=== PATIENT | female | born 1985 | race Caucasian/White ===

== ENCOUNTER 2020-10-19 09:02 | Outpatient (REF) | payer OTHER, SELFPAY ==
[2020-10-20 12:32] LABS: BV Int Neg Control Negative (Negative); BV Int Pos Control Positive (Positive)
[2020-10-23 20:57] LABS: HPV mRNA E6/E7 rflx Not Detected (Not Detected)
== END 2020-10-19 09:03 | disposition home or self-care (01) ==
LOC: HO.LAB 09:02
PROVIDERS: PCP Internal Medicine; Visit Provider Obstetrics & Gynecology
DX: Z01.419 Encounter for gynecological examination (general) (routine) without abnormal findings (principal); N94.10 Unspecified dyspareunia; Z11.3 Encounter for screening for infections with a predominantly sexual mode of transmission
CPT/HCPCS: 87480; 87510; 87624; 87660; 88142

== ENCOUNTER 2021-10-22 10:32 | Outpatient (REF) | payer OTHER, SELFPAY ==
[2021-10-22 15:54] LABS: CT PCR NOT DETECTED (Not Detect.); NG PCR NOT DETECTED (Not Detect.)
[2021-10-23 12:16] LABS: BV Int Neg Control Negative (Negative); BV Int Pos Control Positive (Positive)
[2021-10-25 05:06] LABS: HPV mRNA E6/E7 rflx Not Detected (Not Detected)
== END 2021-10-22 10:33 | disposition home or self-care (01) ==
LOC: HO.LAB 10:32
PROVIDERS: Visit Provider Advanced Practice Midwife
DX: Z01.411 Encounter for gynecological examination (general) (routine) with abnormal findings (principal); Z11.51 Encounter for screening for human papillomavirus (HPV); R10.2 Pelvic and perineal pain; Z20.2 Contact with and (suspected) exposure to infections with a predominantly sexual mode of transmission
CPT/HCPCS: 81003; 87480; 87491; 87510; 87591; 87624; 87660; 88142

== ENCOUNTER 2021-11-05 08:53 | Outpatient (REF) | payer OTHER, SELFPAY ==
--- NOTE | ~2021-11-05 | US_ITS ---
. EXAMINATION:US pelvic and transvaginal CLINICAL INFORMATION: Reason for Exam R10.2 - Pelvic and perineal pain COMPARISON: No priors available. LMP: 10/26/2021 FINDINGS: UTERUS: The uterus is anteverted. Size: 10 x 5.2 x 6.2 cm. Uterine mass: There is no uterine mass. Cervix: Grossly unremarkable. Endometrium: No ultrasound evidence of endometrial lesion. endometrial thickness measures 0.9 cm there is a trace amount of fluid in the endometrial canal. Questionable significance. ADNEXA: Normal Right ovary: Normal in size. There are ovarian follicles. Left ovary: Normal in size. Doppler exam: Normal Doppler flow identified in both ovaries. FREE FLUID: Trace amount of free fluid. OTHER FINDINGS: None US/US pelvic and transvaginal IMPRESSION: Trace amount of free fluid in the endometrial canal probably of no clinical significance, ultrasound otherwise is normal. No ultrasound evidence of uterine mass or fibroid.
== END 2021-11-05 08:54 | disposition home or self-care (01) ==
LOC: HO.HMGCX 08:53
PROVIDERS: Visit Provider Advanced Practice Midwife
DX: R10.2 Pelvic and perineal pain (principal)
CPT/HCPCS: 76830; 76856

== ENCOUNTER 2022-01-06 12:15 | Outpatient (REF) | payer OTHER, SELFPAY ==
[2022-01-06 13:44] LABS: MANUAL DIFF FLAG NO
[2022-01-06 13:59] LABS: Basophils Percent Auto 0.7 % (0-2); Eosinophils Percent Auto 0.2 % (0-4); Hematocrit 39.5 % (37.0-47.0); Hemoglobin 13.2 g/dl (12.0-16.0); Imm Gran Abs Auto 0.06 X10*3/uL (0.00-0.03); Lymphocytes Absolute Auto 1.3 X10*3/uL (1.2-4.9); Mean Corpuscular HGB Conc 33.4 g/dl (31.0-35.0); Mean Corpuscular Hemoglobin 28.4 pg (27.0-33.0); Mean Corpuscular Volume 85.1 fL (80.0-98.0); Mean Platelet Volume 10.5 fL (9.4-12.3); Monocytes Absolute Auto 0.5 X10*3/uL (0.1-1.2); Monocytes Percent Auto 9.4 % (2-11); Neutrophils Absolute Auto 3.8 x10*3/uL (2.0-8.3); Neutrophils Percent Auto 66.7 % (45-73); Platelet Count 304 X10*3/uL (160-400); Red Blood Count 4.64 X10*6/uL (4.20-5.50); Red Cell Distribution Width 13.4 % (11.0-16.0); White Blood Count 5.7 X10*3/uL (4.8-10.8)
[2022-01-06 14:17] LABS: Alanine Aminotransferase 16 U/L (0-31); Albumin Level 4.5 g/dL (3.5-5.0); Alkaline Phosphatase 68 U/L (39-117); Anion Gap 12 (12-20); Aspartate Amino Transferase 16 U/L (5-31); Bilirubin Total 0.3 mg/dL (0.0-1.0); Blood Urea Nitrogen 11 mg/dL (9-16); Calcium 10.6 mg/dL (8.4-10.2); Carbon Dioxide 27 mmol/L (22-29); Chloride 102 mmol/L (96-108); Cholesterol 173 mg/dL; Estimated Glomerular Filt Rate > 60; Glucose Fasting 78 mg/dL (60-99); HDL Cholesterol 48 mg/dL; LDL Cholesterol Calculated 99 mg/dl; Potassium 4.1 mmol/L (3.3-5.1); Sodium 137 mmol/L (135-145); Total Protein 7.7 g/dL (6.5-8.0); Triglycerides 134 mg/dL
[2022-01-06 14:25] LABS: TSH reflex Free T4 1.29 uIU/mL (0.32-4.0)
== END 2022-01-06 12:16 | disposition home or self-care (01) ==
LOC: HO.HMGCLDS 12:15
PROVIDERS: Visit Provider Internal Medicine
DX: Z00.00 Encounter for general adult medical examination without abnormal findings (principal); F32.9 Major depressive disorder, single episode, unspecified; G43.909 Migraine, unspecified, not intractable, without status migrainosus
CPT/HCPCS: 36415; 80053; 80061; 84443; 85025

== ENCOUNTER → 2022-03-05 10:52 | Outpatient (BNVA) | payer OTHER, SELFPAY | PROVIDERS: PCP Internal Medicine; Visit Provider Dietitian, Registered | DX: E66.3 Overweight (principal); Z68.28 Body mass index [BMI] 28.0-28.9, adult; Z71.3 Dietary counseling and surveillance | CPT/HCPCS: 97802 ==

== ENCOUNTER 2022-07-21 13:22 | Outpatient (REF) | payer OTHER, SELFPAY ==
--- NOTE | ~2022-07-21 | MM_ITS ---
EXAMINATION: MM DIAGNOSTIC DIGITAL BREAST TOMOSYNTHESIS, BILATERAL US DIAGNOSTIC ULTRASOUND BREAST, RIGHT CLINICAL INFORMATION: Intermittent recurrent right upper breast pain. No discharge. Age 37. No prior breast imaging. No known family history breast cancer. The lifetime risk of breast cancer based on the Tyrer-Cuzick Model is 9%. COMPARISON: None (current study represents initial baseline exam). TECHNIQUE: Digital breast tomosynthesis is performed in both the craniocaudal and mediolateral oblique views along with computer-aided detection (CAD). Synthesized 2D images are generated from the tomosynthesis. Ultrasound right breast is targeted to the areas of clinical concern. Grayscale imaging and color Doppler are performed without and with harmonics. FINDINGS: There are scattered areas of fibroglandular density (ACR BI-RADS breast composition Category b). There are no significant masses, abnormal calcifications, or other abnormalities. There is no architectural abnormality. No skin thickening or coarsening of the Augusto's ligaments. The axilla are unremarkable. The skin contours are smooth. Small incidental dermal lesion overlying the posterior lower outer right breast. There are bilateral nipple piercings. Ultrasound demonstrates no cystic or solid mass or architectural abnormality or focal duct ectasia. No skin thickening or edema tracking in soft tissue planes. No abnormal color flow. Results are discussed with the patient at time of visit. MM/MM tomosynthesis diagnostic BI IMPRESSION: 1. No mammographic evidence of malignancy or inflammatory changes. 2. Unremarkable targeted right breast ultrasound. ASSESSMENT: BI-RADS 2: Benign RECOMMENDATION: 1. Patient should be managed based on the clinical impression. 2. Otherwise, routine annual screening mammography, beginning age 40, or earlier as clinical risk factors warrant. This patient's information was entered into a reminder system with a target due date for their next mammogram.
== END 2022-07-21 13:23 | disposition home or self-care (01) ==
LOC: HO.MAMMO 13:22
PROVIDERS: Visit Provider Physician Assistant
DX: N64.4 Mastodynia (principal)
CPT/HCPCS: 76642; 77062; 77066

== ENCOUNTER → 2022-08-13 09:38 | Outpatient (BNVA) | payer OTHER, SELFPAY | PROVIDERS: PCP Internal Medicine; Visit Provider Dietitian, Registered | DX: E66.9 Obesity, unspecified (principal); Z68.31 Body mass index [BMI] 31.0-31.9, adult | CPT/HCPCS: 97803 ==

== ENCOUNTER → 2022-10-22 10:26 | Outpatient (BNVA) | payer OTHER, SELFPAY | PROVIDERS: PCP Internal Medicine; Visit Provider Dietitian, Registered | DX: E66.9 Obesity, unspecified (principal); Z68.32 Body mass index [BMI] 32.0-32.9, adult; Z71.3 Dietary counseling and surveillance | CPT/HCPCS: 97803 ==

== ENCOUNTER 2023-02-03 10:48 | Outpatient (AMB) | payer OTHER, SELFPAY ==
[2023-02-03 10:57] VITALS: BMI 31.4
--- NOTE | 2023-02-03 10:57 | A.OFFVIS_ITS ---
Intake VS Expanded 02/03/23 10:57 Height 5 ft 1 in Weight 166 lb 3.657 oz BMI 31.4 Intake Visit Reasons: obesity Allergies codeine Allergy (Unknown, Verified 07/08/22 14:12) nausea and vomiting HPI Nutrition Presentation Details Pt presents for MNT f/u for obesity Pt reports starting to track calories and protein , reaching 60-90 g protein per day and working on reducing carbs/higher fat foods. Meals consists of: B: protein shake (30 g protein shakes already made) L: grilled thigh with green beans and olive oil D: chicken legs in air fryer and salad food frequency vegetables: >3 serving/d fruits: 0-1/d protein : 60-90 g /d starches 10-12 dairy: 2-3 serving/d fluids 40 oz /d (water, low sugar beverages) Reports having bowel movements: every 2-3 days Most Recent Diabetes Results: Cholesterol 173 mg/dL 01/06/22 HDL Cholesterol 48 mg/dL 01/06/22 Triglycerides 134 mg/dL 01/06/22 Creatinine 0.83 mg/dL (0.5-1.4) 01/06/22 Blood Urea Nitrogen 11 mg/dL (9-16) 01/06/22 Sodium 137 mmol/L (135-145) 01/06/22 Potassium 4.1 mmol/L (3.3-5.1) 01/06/22 Chloride 102 mmol/L (96-108) 01/06/22 Carbon Dioxide 27 mmol/L (22-29) 01/06/22 Calcium 10.6 mg/dL (8.4-10.2) H 01/06/22 AST 16 U/L (5-31) 01/06/22 ALT 16 U/L (0-31) 01/06/22 Total Protein 7.7 g/dL (6.5-8.0) 01/06/22 Albumin 4.5 g/dL (3.5-5.0) 01/06/22 [facility] Medical History Abnormal Pap smear of vagina Annual physical exam Migraine Surgical History History of section History of tubal ligation Family History Father Unknown family medical history Mother Depression Anxiety HTN (hypertension) History of CVA (cerebrovascular accident) Diabetes mellitus Stroke Brother Leukemia Sister Migraine Brother No problems noted. Son No problems noted. Daughter No problems noted. Daughter No problems noted. 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 Used wt : 70 kg stated wt on 03/05/22 via TV , (75 kg on 08/13/22) (75 on 01/2023) Est kcal as per MSJ: 1538 (40% carb, 30% fat/prot) Est fluid needs: 1750 ml/d (25 ml/kg bw) Rec fiber: increase to 8-10 g per day and gradually increase to 25 g/d or as tolerated Rec Na: < 1500 2000 mg /d Educate patient on: (R= Reviewed, V = verbalizes understanding N/R= Needs review N/A= not applicable) * Food sources of carbohydrates and serving adequate serving sizes : R * Difference between complex carbohydrates and simple carbohydrates, role of fiber: R * Differences between fats (MUFA/PUFA/saturated fats, trans fats) and food sources of various fats: R- general info * Food sources of sodium and salt and healthy modifications for heart health and kidney health: R, general info * Vitamins and minerals: N/R * How to interpret food labels: R- (portions/prot, salt, calories) * Healthy Plate method concept: R * Physical activity: benefits and precaution: R Patient Instructions: Have 60-75 g of protein per day Include at least 2 fruits per day and continue having non starchy vege, increasing on fiber gradually to 12 g per day for now Keep hydrated by having water with meals/snacks, and whenever feeling thirsty, aim at 60-64 oz /day unless otherwise specified by your doctor. Coding Level of Care Code Nutr Indiv Subseq (91751) Diagnoses Obesity (BMI 30.0-34.9) E66.9 Time Spent (min) 20
== END 2023-02-03 11:26 | disposition home or self-care (01) ==
PROVIDERS: PCP Internal Medicine; Visit Provider Dietitian, Registered
DX: E66.9 Obesity, unspecified (principal)

== ENCOUNTER → 2023-02-03 10:48 | Outpatient (BNVA) | payer OTHER, SELFPAY | PROVIDERS: Visit Provider Dietitian, Registered | DX: E66.9 Obesity, unspecified (principal); Z68.31 Body mass index [BMI] 31.0-31.9, adult; Z71.3 Dietary counseling and surveillance | CPT/HCPCS: 97803 ==

== ENCOUNTER 2023-05-04 09:28 | Outpatient (AMB) | payer OTHER, SELFPAY ==
--- NOTE | 2023-05-04 09:29 | A.OFFPC_ITS ---
Vital Signs 05/04/23 09:32 Height 5 ft 1 in Weight 163 lb 2 oz BMI 30.8 BP 120/90 H Blood Pressure Location Rt brachial Position Sitting Pulse 74 Pulse Source Pulse Oximeter Pulse Oximetry (%) 98 Oxygen Delivery Method Room Air Intake Visit Reasons: Follow up on depression Intake Note: Patient here for depression follow up, she states she was feeling good and now no longer feeling ok and noticed its harder to control. Allergies codeine Allergy (Unknown, Verified 05/04/23 09:36) nausea and vomiting Medication List - Last Reconciled 05/04/23 by Rose Grant MD No Known Home Meds Tobacco use date assessed: 01/06/22 Dental Screening Dental Screen Date: 05/04/23 Did you have a dental visit in the last 12 months?: Yes Did you have a dental problem in the last 6 months where you did not have access to dental care?: No Was dental information given to patient?: Patient has dentist HPI Follow up on depression HPI Details Pt presents for f/u depression, getting worse since stopped taking bupropion. Patient denies suicidal ideation and is not interested in seeing counselor. She would like to try a different antidepressant. Patient is concerned about side effects of decreased sexual drive but is still interested in trying SSRIs. Patient is moving to [place] in June because of her 's deployment. [facility] Medical History Abnormal Pap smear of vagina Annual physical exam Migraine Surgical History History of section History of tubal ligation Family History Father Unknown family medical history Mother Depression Anxiety HTN (hypertension) History of CVA (cerebrovascular accident) Diabetes mellitus Stroke Brother Leukemia Sister Migraine Brother No problems noted. Son No problems noted. Daughter No problems noted. Daughter No problems noted. 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 1. Little interest or pleasure in doing things: several days 2. Feeling down, depressed, or hopeless: more than half the days 3. Trouble falling or staying asleep, or sleeping too much: more than half the days 4. Feeling tired or having little energy: nearly every day 5. Poor appetite or overeating: nearly every day 6. Feeling bad about yourself - or that you are a failure or have let yourself or your family down: nearly every day 7. Trouble concentrating on things, such as reading the newspaper or watching television: more than half the days 8. Moving or speaking so slowly that other people could have noticed. Or the opposite - being so fidgety or restless that you have been moving around a lot more than usual: not at all 9. Thoughts that you would be better off or of hurting yourself in some way: not at all Total score: 16 Depression Screening Interpretation: Positive Depression Screening Done: Yes 06096 - PHQ-9 Billing: Yes Source: Developed by Drs. Feliciano Boyd, Bambi Wilson, Cedric Castillo and colleagues, with an educational mando from [employer]. Thrive Questionnaire Date Thrive assessed: 01/06/22 TAYE-7 AMB Questionnaire TAYE-7 Date TAYE - 7 assessed: 01/06/22 Source: Developed by Drs. Feliciano Boyd, Bambi Wilson, Cedric Castillo and colleagues, with an educational mando from [employer]. Review of Systems Const All systems reviewed & are unremarkable except as noted in HPI and below Reports no additional complaints Eyes Reports no additional complaints ENT Reports no additional complaints Card Reports no additional complaints GI Reports no additional complaints Reports no additional complaints Physical exam (Primary Care) Vital Signs: Last Vital Signs Pulse 74 05/04/23 09:32 BP 120/90 H 05/04/23 09:32 Pulse Ox 98 05/04/23 09:32 Oxygen Delivery Method Room Air 05/04/23 09:32 BMI result Body Mass Index 30.8 Tobacco/Smoking Status: Tobacco use Status Tobacco use date assessed 01/06/22 05/04/23 09:31 Patient Tobacco Use Status Never used Tobacco 05/04/23 09:31 e-Cigarette/Vaping Use Never Used 05/04/23 09:31 Depression Screening Interpretation: Positive Thrive Assessment: Date of Thrive Assessment Date Thrive assessed 01/06/22 05/04/23 09:31 Const General: no acute distress Neck Neck: Yes supple Resp Effort & Inspection: normal respiratory effort Auscultation: clear to auscultation bilaterally Cardio Rhythm: regular rhythm Heart sounds: S1 normal heart sound present and S2 normal heart sound present Assessment and Plan Assessment & Plan (1) Depression: Code(s): F32.9 - Major depressive disorder, single episode, unspecified Plan: Zoloft 50 mg daily will be started and side effects discussed with the patient. She was advised to follow-up with counseling and stress management discussed with the patient. Medications: New sertraline (Zoloft) 1/2 tab for 3 days then 1 tabl QD 50 mg PO DAILY 90 tabs 1RF Coding Level of Care Code Est Pt Level 3 (66364) Diagnoses Depression F32.9
[2023-05-04 09:32] VITALS: BP 120/90; PULSE 74; O2SAT 98; BMI 30.8
== END 2023-05-04 10:31 | disposition home or self-care (01) ==
PROVIDERS: PCP Internal Medicine; Visit Provider Internal Medicine
DX: F32.9 Major depressive disorder, single episode, unspecified (principal)
CPT/HCPCS: 99213

== ENCOUNTER 2023-06-05 09:57 | Outpatient (AMB) | payer OTHER, SELFPAY ==
[2023-06-05 10:26] VITALS: BP 118/88; PULSE 95; O2SAT 97; BMI 30.8
--- NOTE | 2023-06-05 10:26 | MHC.PC.OV ---
Vital Signs 06/05/23 10:26 Height 5 ft 1 in Weight 163 lb BMI 30.8 BP 118/88 Blood Pressure Location Lt brachial Position Sitting Pulse 95 Pulse Source Pulse Oximeter Pulse Oximetry (%) 97 Oxygen Delivery Method Room Air Intake Visit Reasons: 5 Week F/U Intake Note: Pt is here today for 5 weeks follow up visit. Allergies codeine Allergy (Unknown, Verified 06/05/23 10:30) nausea and vomiting Medication List - Last Reconciled 06/05/23 by Rose Grant MD sertraline (Zoloft) 50 mg PO DAILY Tobacco use date assessed: 06/05/23 Dental Screening Dental Screen Date: 06/05/23 Did you have a dental visit in the last 12 months?: Yes Did you have a dental problem in the last 6 months where you did not have access to dental care?: No Was dental information given to patient?: Patient has dentist HPI 5 Week F/U HPI Details Patient presents for the follow-up of chronic depression feeling better on Zoloft. Patient has been getting psychotherapy weekly. She is moving to [place] because of her 's deployment. [facility] Medical History Annual physical exam Abnormal Pap smear of vagina Migraine Surgical History History of section History of tubal ligation Family History Father Unknown family medical history Mother Depression Anxiety HTN (hypertension) History of CVA (cerebrovascular accident) Diabetes mellitus Stroke Mental health disorder Substance use disorder Brother Leukemia Substance use disorder Sister Migraine Substance use disorder Brother No problems noted. Son No problems noted. Daughter No problems noted. Daughter No problems noted. 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 How often do you have a drink containing alcohol?: Monthly or less 2. How many drinks containing alcohol do you have on a typical day when you are drinking?: 1 or 2 3. How often do you have six or more drinks on one occasion?: Never Total Score: 1 TAYE-7 AMB Questionnaire TAYE-7 Date TAYE - 7 assessed: 01/06/22 Source: Developed by Drs. Feliciano Boyd, Bambi Wilson, Cedric Castillo and colleagues, with an educational mando from [employer]. Review of Systems Const All systems reviewed & are unremarkable except as noted in HPI and below Reports no additional complaints Eyes Reports no additional complaints ENT Reports no additional complaints Card Reports no additional complaints Resp Reports no additional complaints GI Reports no additional complaints Physical exam (Primary Care) Vital Signs: Last Vital Signs Pulse 95 06/05/23 10:26 BP 118/96 H 06/05/23 10:26 Pulse Ox 97 06/05/23 10:26 Oxygen Delivery Method Room Air 06/05/23 10:26 BMI result Body Mass Index 30.8 Tobacco/Smoking Status: Tobacco use Status Tobacco use date assessed 06/05/23 06/05/23 10:33 Patient Tobacco Use Status Never used Tobacco 06/05/23 10:33 e-Cigarette/Vaping Use Never Used 06/05/23 10:33 Thrive Assessment: Date of Thrive Assessment Date Thrive assessed 01/06/22 06/05/23 10:33 Const General: healthy appearing Resp Effort & Inspection: normal respiratory effort Auscultation: clear to auscultation bilaterally Cardio Rhythm: regular rhythm Heart sounds: S1 normal heart sound present and S2 normal heart sound present Assessment and Plan Assessment & Plan (1) Depression: Code(s): F32.9 - Major depressive disorder, single episode, unspecified Plan: Continue sertraline Medications: Changed From sertraline (Zoloft) 1/2 tab for 3 days then 1 tabl QD 50 mg PO DAILY 90 tabs 1RF To sertraline (Zoloft) 50 mg PO DAILY 90 tabs 1RF Coding Level of Care Code Est Pt Level 3 (00457) Diagnoses Depression F32.9
== END 2023-06-05 11:45 | disposition home or self-care (01) ==
PROVIDERS: PCP Internal Medicine; Visit Provider Internal Medicine
DX: F32.9 Major depressive disorder, single episode, unspecified (principal)
CPT/HCPCS: 99213